=== PATIENT | female | born 1970 | race Two or more races ===

== ENCOUNTER → 2025-04-16 | Outpatient (CLI) | payer MEDICAID, SELFPAY ==
--- NOTE | 2025-04-16 13:09 | XR_ITS ---
Examination: Pelvic ultrasound, transabdominal, complete Technique: Transabdominal ultrasound of the pelvis performed using grayscale imaging Date and time of exam: April 16, 2025, 1342 hours INDICATIONS: Hysterectomy 2017, pelvic pain and frequent urinary tract infections beginning 2 years ago. FINDINGS: Absent uterus Absent ovaries No free fluid in the pelvis No pelvic mass IMPRESSION: No free fluid in the pelvis No pelvic mass
== END | disposition home or self-care (01) ==
LOC: CDIM 13:03
PROVIDERS: PCP Nurse Practitioner Family; Referring Provider Nurse Practitioner Family; Visit Provider Nurse Practitioner Family
DX: R30.0 Dysuria (principal); N39.0 Urinary tract infection, site not specified
CPT/HCPCS: 76856

== ENCOUNTER → 2025-05-14 | Outpatient (CLI) | payer MEDICAID, SELFPAY ==
--- NOTE | 2025-05-14 10:30 | XR_ITS ---
Examination: Retroperitoneal ultrasound, complete Technique: Multiple high resolution grayscale images of the retroperitoneum obtained, including kidneys and bladder. Exam date and time: May 14, 2025, 1104 hours INDICATIONS: Recurrent urinary tract infections several months, history left renal cystic disease, comparison June 11, 2023. FINDINGS: Right kidney 10.9 cm renal cortex 1.6 cm 6 mm mid pole calculus Left kidney 10.8 cm renal cortex 2.1 cm 18 mm lower pole cyst 5 mm lower pole calculus No bladder mass or bladder calculi, bladder prevoid volume 237 cc postvoid volume 0 cc IMPRESSION: Bilateral nonobstructing renal calculi
== END | disposition home or self-care (01) ==
LOC: CDIM 10:31
PROVIDERS: PCP Nurse Practitioner Family; Referring Provider Nurse Practitioner Family; Visit Provider Nurse Practitioner Family
DX: N20.0 Calculus of kidney (principal)
CPT/HCPCS: 76770